=== PATIENT | female | born 1980 | race Caucasian/White ===

== ENCOUNTER 2016-12-23 17:54 | Emergency (ER) | payer OTHER, SELFPAY ==
[2016-12-23 18:07] VITALS: BP 151/74; PULSE 89; O2SAT 100
--- NOTE | 2016-12-23 18:21 | ERPHSYRPT ---
- History of Present Illness Time Seen by Provider: 12/23/16 18:19 Source: patient Exam Limitations: no limitations Patient Subjective Stated Complaint: pt reports tripping et hurting left foot 2 days ago-pt has rice with no refief-reports pain is now radiating up extremity Triage Nursing Assessment: bruising et swelling noted to extremity-pedal pulse regular Physician History: pt reports tripping et hurting left foot 2 days ago-pt has rice with no refief- reports pain is now radiating up extremity Method of Injury: fell, twisted Occurred: yesterday Quality: constant Severity of Pain-Max: mild Severity of Pain-Current: mild Lower Extremities Pain: ankle: left Modifying Factors: Improves With: nothing Associated Symptoms: No unable to bear weight Allergies/Adverse Reactions: clarithromycin [From Biaxin] Allergy (Verified 12/23/16 18:07) Home Medications: Metformin HCl 500 mg [Glucophage 500 MG] 500 mg PO BID 04/19/16 [History] Insulin Aspart [Novolog Flexpen] 100 unit SQ UD 12/23/16 [History] Insulin Detemir [Levemir] 26 unit SQ HS 12/23/16 [History] Hx Tetanus, Diphtheria Vaccination/Date Given: Yes Hx Influenza Vaccination/Date Given: Yes Hx Pneumococcal Vaccination/Date Given: Yes Immunizations Up to Date: Yes - Review of Systems Constitutional: No Symptoms Eyes: No Symptoms Ears, Nose, & Throat: No Symptoms Musculoskeletal: Joint Pain (left ankle) - Past Medical History Pertinent Past Medical History: Yes Endocrine Medical History: Diabetes Type II Musculoskeletal History: Degenerative Disk Disease, Other GI Medical History: Colitis History: No Pertinent History Psycho-Social History: Anxiety, Depression Other Medical History: PAST HX DM TYPE 2 - Past Surgical History Past Surgical History: Yes Gastrointestinal: Cholecystectomy, Other Female Surgical History: Section Other Surgical History: BARIATRIC SURGERY. SKIN REMOVAl - Social History Smoking Status: Never smoker Exposure to second hand smoke: No Drug Use: none Patient Lives Alone: No - Female History Hx Last Menstrual Period: current - Nursing Vital Signs Nursing Vital Signs: Initial Vital Signs Pulse Rate 89 Respiratory Rate 22 Blood Pressure [] 151/74 Pain Intensity 6 - Physical Exam General Appearance: no apparent distress Eyes, Ears, Nose, Throat Exam: normal ENT inspection Ankle Exam: left ankle: pain, soft tissue tenderness, swelling SpO2: 100 Oxygen Delivery: Room Air - Course Nursing assessment & vital signs reviewed: Yes - Radiology Exams Ankle X-ray Interpretation: Reviewed by me (no fracture) Ordered Tests: Active Orders 24 hr Category Date Time Status ANKLE (3 VIEWS) Stat Exams 12/23/16 18:17 Taken - Progress Progress: unchanged, pain not gone completely Counseled pt/family regarding: diagnosis, need for follow-up, rad results - Departure Time of Disposition: 18:38 Departure Disposition: Home Clinical Impression: Sprain of left ankle Qualifiers: Encounter type: initial encounter Involved ligament of ankle: deltoid ligament Qualified Code(s): S93.422A - Sprain of deltoid ligament of left ankle, initial encounter Condition: Stable Critical Care Time: No Referrals: ANTONIO LEIGH MD [Primary Care Provider] - Instructions: Ankle Sprain Additional Instructions: SPRAINS/STRAINS/CONTUSIONS 1. Rest the affected area as much as possible for the next few days. 2. Apply ice to the affected area for 20-30 minutes at a time, several times a day. 3. If you receive an elastic wrap, wear it only while awake for comfort and support. Re-wrap the elastic wrap if it feels too tight or too loose. 4. If swelling is present, elevate the affected part above the level of the heart for at least 2 to 3 days. 5. Use splints, slings, or crutches as instructed. 6. Watch for severe swelling, coldness, numbness, and discoloration of the fingers and toes. See your family physician or return to the emergency department if any of these are noted. Please follow the instructions given to you. Please take your medication as prescribed if given. If symptoms recur or get worse, come back to the emergency room if you cannot reach your primary care physician, or call your primary care physician for an appointment. Again if your symptoms get worse, come back to the emergency room. Thanks for visiting emergency room, and let us take care of you.
--- NOTE | 2016-12-24 08:35 | XRAY ---
Indication: Lateral ankle pain following injury. Comparison: None 3 views of the left ankle demonstrates minimal anterior soft tissue swelling. No other bony, articular, or soft tissue abnormalities.
== END 2016-12-23 18:46 | disposition home or self-care (01) ==
LOC: ED 17:54
DX: S93.422A Sprain of deltoid ligament of left ankle, initial encounter (principal); M25.572 Pain in left ankle and joints of left foot; X50.1XXA Overexertion from prolonged static or awkward postures, initial encounter; W01.0XXA Fall on same level from slipping, tripping and stumbling without subsequent striking against object, initial encounter
CPT/HCPCS: 73610; 99283

== ENCOUNTER 2018-03-15 21:39 | Emergency (ER) | payer OTHER ==
[2018-03-15] MEDS ORDERED: Sodium Chloride 0.9% 1000 ML 1,000 ML IV STA (22:05)
[2018-03-15] MEDS ORDERED: BENADRYL 50 MG/ML IV ONE (22:05)
[2018-03-15] MEDS ORDERED: PROTONIX 40 MG IV IV ONE ×2 (22:05→22:13)
[2018-03-15] MEDS ORDERED: MORPHINE SULFATE 4 MG INJ IV ONE (22:05)
[2018-03-15] MEDS ORDERED: Zofran 4 MG/2 ML VIAL IV ONE (22:05)
[2018-03-15] MEDS ORDERED: Pepcid 20 MG VIAL IV ONE ×2 (22:05→22:14)
[2018-03-15] MEDS ORDERED: BENADRYL 50 MG/ML ONE (22:13)
[2018-03-15] MEDS ORDERED: Zofran 4 MG/2 ML VIAL ONE (22:13)
[2018-03-15] MEDS ORDERED: Sodium Chloride 0.9% 1000 ML 1,000 ML ONE (22:14)
[2018-03-15] MEDS ORDERED: MORPHINE SULFATE 4 MG INJ ONE (22:14)
--- NOTE | 2018-03-15 22:20 | ERPHSYRPT ---
- History of Present Illness Time Seen by Provider: 03/15/18 22:17 Historian: patient, family Exam Limitations: no limitations Patient Subjective Stated Complaint: nausea, vomiting, abd pain x 4 days Triage Nursing Assessment: pt alert and oriented. pt ambulatory. mucous membranes dry. bowel sounds present x4. rebound tenderness noted RLQ. pt is dry heaving and nauseous. pt states pain in abd is an 8/10. has been having pain on and off for approximately 4 days but did not vomit until today. insulin pump located on RLQ Physician History: pt with one week hx abd pain and now vomiting and right flank pain no discharge or bleeding tender right mid abdomen Timing/Duration: day(s) Activities at Onset: none Quality: sharpness, stabbing Abdominal Pain Onset Location: RLQ, flank Pain Radiation: RLQ, flank Severity of Pain-Max: moderate Severity of Pain-Current: moderate Modifying Factors: Improves With: nothing Associated Symptoms: back, nausea, vomiting Previous symptoms: same symptoms as today Allergies/Adverse Reactions: clarithromycin [From Biaxin] Allergy (Verified 12/23/16 18:07) Home Medications: Metformin HCl 500 mg [Glucophage 500 MG] 500 mg PO BID 04/19/16 [History] Insulin Aspart [Novolog Flexpen] 100 unit SQ UD 12/23/16 [History] Insulin Detemir [Levemir] 26 unit SQ HS 12/23/16 [History] Hx Tetanus, Diphtheria Vaccination/Date Given: Yes Hx Influenza Vaccination/Date Given: Yes Hx Pneumococcal Vaccination/Date Given: Yes Immunizations Up to Date: Yes - Review of Systems Constitutional: No Fever, No Chills Eyes: No Symptoms Ears, Nose, & Throat: No Symptoms Respiratory: No Cough, No Dyspnea Cardiac: No Chest Pain, No Edema, No Syncope Abdominal/Gastrointestinal: Abdominal Pain, Nausea, Vomiting, No Diarrhea Genitourinary Symptoms: No Dysuria Musculoskeletal: No Back Pain, No Neck Pain Skin: No Rash Neurological: No Dizziness, No Focal Weakness, No Sensory Changes Psychological: No Symptoms Endocrine: No Symptoms All Other Systems: Reviewed and Negative - Past Medical History Pertinent Past Medical History: Yes Cardiac History: No Pertinent History Respiratory History: No Pertinent History Endocrine Medical History: Diabetes Type II Musculoskeletal History: Degenerative Disk Disease, Other GI Medical History: Colitis History: No Pertinent History Psycho-Social History: Anxiety, Depression Other Medical History: PAST HX DM TYPE 2 - Past Surgical History Past Surgical History: Yes Gastrointestinal: Cholecystectomy, Other Female Surgical History: Section Other Surgical History: BARIATRIC SURGERY. SKIN REMOVAl - Social History Smoking Status: Never smoker Exposure to second hand smoke: No Drug Use: none Patient Lives Alone: No - Female History Hx Last Menstrual Period: 03/09/18 Hx Now: No (HCG pending) - Nursing Vital Signs Nursing Vital Signs: Initial Vital Signs Pulse Rate 79 03/15/18 21:39 Respiratory Rate 16 03/15/18 21:39 Blood Pressure 143/86 03/15/18 21:39 O2 Sat by Pulse Oximetry 99 03/15/18 21:39 Pain Scale Pain Intensity 6 - Physical Exam General Appearance: no apparent distress, alert Eye Exam: PERRL/EOMI, eyes nml inspection Ears, Nose, Throat Exam: normal ENT inspection, pharynx normal, moist mucous membranes Neck Exam: normal inspection, non-tender, supple, full range of motion Respiratory Exam: normal breath sounds, lungs clear, No respiratory distress Cardiovascular Exam: regular rate/rhythm, normal heart sounds Gastrointestinal/Abdomen Exam: soft, tenderness, No mass Pelvic Exam: deferred Rectal Exam: deferred Back Exam: normal inspection, normal range of motion, No CVA tenderness, No vertebral tenderness Extremity Exam: normal inspection, normal range of motion, pelvis stable Neurologic Exam: alert, oriented x 3, cooperative, normal mood/affect, nml cerebellar function, sensation nml, No motor deficits Skin Exam: normal color, warm, dry SpO2: 99 Oxygen Delivery: Room Air - Course Nursing assessment & vital signs reviewed: Yes EKG Interpreted by Me: Sinus Rhythm, Non-specific ST Changes - CT Exams Abdomen CT Interpretation: Tele-radiologist Report, Normal Appendix, Other (ovarian follicles on right and some loops of bowel) Ordered Tests: Active Orders 24 hr Category Date Time Status Clean Catch Urine Specimen STAT Care 03/15/18 22:05 Active EKG-ER Only STAT Care 03/15/18 22:01 Active IV Insertion STAT Care 03/15/18 22:01 Active NPO (ED) STAT Care 03/15/18 22:05 Active ABDOMEN AND PELVIS W/0 CONTRAS [CT] Stat Exams 03/15/18 22:06 Taken PELVIS TRANS VAGINAL [US] Stat Exams 03/16/18 00:45 Taken AMYLASE Stat Lab 03/15/18 22:55 Completed CBC W DIFF Stat Lab 03/15/18 22:55 Completed CMP Stat Lab 03/15/18 22:55 Completed CULTURE,URINE Stat Lab 03/15/18 22:30 Received HCG QUALITATIVE,SERUM Stat Lab 03/15/18 22:55 Completed LIPASE Stat Lab 03/15/18 22:55 Completed Lactic Acid Stat Lab 03/15/18 22:55 Completed TROPONIN Q3H Lab 03/15/18 22:55 Completed TROPONIN Q3H Lab 03/16/18 01:15 Completed TROPONIN Q3H Lab 03/16/18 04:15 Ordered TROPONIN Q3H Lab 03/16/18 07:15 Ordered TROPONIN Q3H Lab 03/16/18 10:15 Ordered UA W/ MICROSCOPIC Stat Lab 03/15/18 22:30 Completed Medication Summary Discontinued Medications Generic Name Dose Route Start Last Admin Trade Name Freq PRN Reason Stop Dose Admin Diphenhydramine HCl 25 mg 03/15/18 22:05 03/15/18 22:19 Benadryl 50 Mg/Ml IV 03/15/18 22:06 25 mg STAT ONE Administration Diphenhydramine HCl Confirm 03/15/18 22:13 Benadryl 50 Mg/Ml Administered 03/15/18 22:14 Dose 50 mg .ROUTE .STK-MED ONE Famotidine 20 mg 03/15/18 22:05 03/15/18 22:19 Pepcid 20 Mg Vial IV 03/15/18 22:06 20 mg STAT ONE Administration Famotidine Confirm 03/15/18 22:14 Pepcid 20 Mg Vial Administered 03/15/18 22:15 Dose 20 mg IV .STK-MED ONE Sodium Chloride 1,000 mls @ 999 mls/hr 03/15/18 22:05 03/15/18 22:20 Sodium Chloride 0.9% 1000 Ml IV 03/15/18 23:05 999 mls/hr .Q1H1M STA Administration Sodium Chloride Confirm 03/15/18 22:14 Sodium Chloride 0.9% 1000 Ml Administered 03/15/18 22:15 Dose 1,000 mls @ ud .ROUTE .STK-MED ONE Morphine Sulfate 4 mg 03/15/18 22:05 03/15/18 22:19 Morphine Sulfate 4 Mg Inj IV 03/15/18 22:06 4 mg STAT ONE Administration Morphine Sulfate Confirm 03/15/18 22:14 Morphine Sulfate 4 Mg Inj Administered 03/15/18 22:15 Dose 4 mg .ROUTE .STK-MED ONE Ondansetron HCl 4 mg 03/15/18 22:05 03/15/18 22:20 Zofran 4 Mg/2 Ml Vial IV 03/15/18 22:06 4 mg STAT ONE Administration Ondansetron HCl Confirm 03/15/18 22:13 Zofran 4 Mg/2 Ml Vial Administered 03/15/18 22:14 Dose 4 mg .ROUTE .STK-MED ONE Pantoprazole Sodium 40 mg 03/15/18 22:05 03/15/18 22:19 Protonix 40 Mg Iv IV 03/15/18 22:06 40 mg STAT ONE Administration Pantoprazole Sodium Confirm 03/15/18 22:13 Protonix 40 Mg Iv Administered 03/15/18 22:14 Dose 40 mg IV .STK-MED ONE Lab/Rad Data: Laboratory Result Diagrams 03/15/18 22:55 03/15/18 22:55 Laboratory Results 03/16/18 03/15/18 03/15/18 Range/Units 01:15 22:55 22:55 WBC (4.0-10.5) K/mm3 RBC (4.1-5.4) M/mm3 Hgb (12.0-16.0) gm/dl Hct (35-47) % MCV (78-100) fl MCH (26-32) pg MCHC (32-36) g/dl RDW (11.5-14.0) % Plt Count (150-450) K/mm3 MPV (6-9.5) fl Gran % (36.0-66.0) % Eos # (Auto) (0-0.5) Absolute Lymphs (auto) (1.0-4.6) Absolute Monos (auto) (0.0-1.3) Lymphocytes % (24.0-44.0) % Monocytes % (0.0-12.0) % Eosinophils % (0.00-5.0) % Basophils % (0.0-0.4) % Absolute Granulocytes (1.4-6.9) Basophils # (0-0.4) Sodium (137-145) mmol/L Potassium (3.5-5.1) mmol/L Chloride (98-107) mmol/L Carbon Dioxide (22-30) mmol/L Anion Gap (5-15) MEQ/L BUN (7-17) mg/dL Creatinine (0.52-1.04) mg/dL Estimated GFR ML/MIN Glucose (74-106) mg/dL Lactic Acid (0.4-2.0) Calcium (8.4-10.2) mg/dL Total Bilirubin (0.2-1.3) mg/dL AST (14-36) U/L ALT (0-35) U/L Alkaline Phosphatase (38-126) U/L Troponin I < 0.012 < 0.012 (0.000-0.034) ng/mL Serum Total Protein (6.3-8.2) g/dL Albumin (3.5-5.0) g/dL Amylase (30-110) U/L Lipase (23-300) U/L Serum , Qual NEGATIVE (Negative) Ur Collection Type Urine Color (YELLOW) Urine Appearance (CLEAR) Urine pH (5-6) Ur Specific Marlin (1.005-1.025) Urine Protein (Negative) Urine Ketones (NEGATIVE) Urine Blood (0-5) Fam/ul Urine Nitrite (NEGATIVE) Urine Bilirubin (NEGATIVE) Urine Urobilinogen (0-1) mg/dL Ur Leukocyte Esterase (NEGATIVE) Urine Microscopic RBC (0-2) /HPF Urine Microscopic WBC (0-5) /HPF Ur Epithelial Cells (FEW) /HPF Urine Bacteria (NEGATIVE) /HPF Urine Culture Reflexed (NO) Urine Glucose (NEGATIVE) mg/dL Specimen Received 03/15/18 03/15/18 03/15/18 Range/Units 22:55 22:55 22:55 WBC 6.7 (4.0-10.5) K/mm3 RBC 3.61 L (4.1-5.4) M/mm3 Hgb 8.8 L (12.0-16.0) gm/dl Hct 28.2 L (35-47) % MCV 78.1 (78-100) fl MCH 24.3 L (26-32) pg MCHC 31.2 L (32-36) g/dl RDW 14.4 H (11.5-14.0) % Plt Count 265 (150-450) K/mm3 MPV 10.5 H (6-9.5) fl Gran % 51.3 (36.0-66.0) % Eos # (Auto) 0.14 (0-0.5) Absolute Lymphs (auto) 2.66 (1.0-4.6) Absolute Monos (auto) 0.43 (0.0-1.3) Lymphocytes % 39.6 (24.0-44.0) % Monocytes % 6.4 (0.0-12.0) % Eosinophils % 2.1 (0.00-5.0) % Basophils % 0.6 (0.0-0.4) % Absolute Granulocytes 3.44 (1.4-6.9) Basophils # 0.04 (0-0.4) Sodium 138 (137-145) mmol/L Potassium 4.0 (3.5-5.1) mmol/L Chloride 105 (98-107) mmol/L Carbon Dioxide 24 (22-30) mmol/L Anion Gap 13.4 (5-15) MEQ/L BUN 9 (7-17) mg/dL Creatinine 0.65 (0.52-1.04) mg/dL Estimated GFR > 60.0 ML/MIN Glucose 95 (74-106) mg/dL Lactic Acid 1.1 (0.4-2.0) Calcium 8.5 (8.4-10.2) mg/dL Total Bilirubin < 0.10 L (0.2-1.3) mg/dL AST 12 L (14-36) U/L ALT 10 (0-35) U/L Alkaline Phosphatase 60 (38-126) U/L Troponin I (0.000-0.034) ng/mL Serum Total Protein 6.1 L (6.3-8.2) g/dL Albumin 3.4 L (3.5-5.0) g/dL Amylase 66 (30-110) U/L Lipase 169 (23-300) U/L Serum , Qual (Negative) Ur Collection Type Urine Color (YELLOW) Urine Appearance (CLEAR) Urine pH (5-6) Ur Specific Marlin (1.005-1.025) Urine Protein (Negative) Urine Ketones (NEGATIVE) Urine Blood (0-5) Fam/ul Urine Nitrite (NEGATIVE) Urine Bilirubin (NEGATIVE) Urine Urobilinogen (0-1) mg/dL Ur Leukocyte Esterase (NEGATIVE) Urine Microscopic RBC (0-2) /HPF Urine Microscopic WBC (0-5) /HPF Ur Epithelial Cells (FEW) /HPF Urine Bacteria (NEGATIVE) /HPF Urine Culture Reflexed (NO) Urine Glucose (NEGATIVE) mg/dL Specimen Received 03/15/18 Range/Units 22:30 WBC (4.0-10.5) K/mm3 RBC (4.1-5.4) M/mm3 Hgb (12.0-16.0) gm/dl Hct (35-47) % MCV (78-100) fl MCH (26-32) pg MCHC (32-36) g/dl RDW (11.5-14.0) % Plt Count (150-450) K/mm3 MPV (6-9.5) fl Gran % (36.0-66.0) % Eos # (Auto) (0-0.5) Absolute Lymphs (auto) (1.0-4.6) Absolute Monos (auto) (0.0-1.3) Lymphocytes % (24.0-44.0) % Monocytes % (0.0-12.0) % Eosinophils % (0.00-5.0) % Basophils % (0.0-0.4) % Absolute Granulocytes (1.4-6.9) Basophils # (0-0.4) Sodium (137-145) mmol/L Potassium (3.5-5.1) mmol/L Chloride (98-107) mmol/L Carbon Dioxide (22-30) mmol/L Anion Gap (5-15) MEQ/L BUN (7-17) mg/dL Creatinine (0.52-1.04) mg/dL Estimated GFR ML/MIN Glucose (74-106) mg/dL Lactic Acid (0.4-2.0) Calcium (8.4-10.2) mg/dL Total Bilirubin (0.2-1.3) mg/dL AST (14-36) U/L ALT (0-35) U/L Alkaline Phosphatase (38-126) U/L Troponin I (0.000-0.034) ng/mL Serum Total Protein (6.3-8.2) g/dL Albumin (3.5-5.0) g/dL Amylase (30-110) U/L Lipase (23-300) U/L Serum , Qual (Negative) Ur Collection Type CLEAN CATCH Urine Color YELLOW (YELLOW) Urine Appearance CLEAR (CLEAR) Urine pH 5.0 (5-6) Ur Specific Marlin 1.010 (1.005-1.025) Urine Protein NEGATIVE (Negative) Urine Ketones NEGATIVE (NEGATIVE) Urine Blood 50 (0-5) Fam/ul Urine Nitrite NEGATIVE (NEGATIVE) Urine Bilirubin NEGATIVE (NEGATIVE) Urine Urobilinogen NORMAL (0-1) mg/dL Ur Leukocyte Esterase 1+ (NEGATIVE) Urine Microscopic RBC 2-5 (0-2) /HPF Urine Microscopic WBC 2-5 (0-5) /HPF Ur Epithelial Cells MODERATE (FEW) /HPF Urine Bacteria FEW (NEGATIVE) /HPF Urine Culture Reflexed YES (NO) Urine Glucose NEGATIVE (NEGATIVE) mg/dL Specimen Received 03/15/180 - Progress Progress: improved, re-examined Progress Note: 03/16/18 00:43 discussed results with pt and discussed additional possible pathology such as torsion and she wishes this ruled out but will require more time to accomplish to call in US. 03/16/18 02:24 pt states that her hemoglobin is low chronically and she is being treated for this and has been lower in past - so not acute. discussed with pt that we have not found the cause of her pain and that undetected pathology could still be evolving and she prefers DC to f/u out pt rather than admission for obs or further [place] at this time here. Counseled pt/family regarding: lab results, diagnosis, need for follow-up, rad results - Departure Time of Disposition: 02:27 Departure Disposition: Home Clinical Impression: Abdominal pain of unknown etiology Condition: Good Critical Care Time: No Referrals: DAYNA VALDES MD [Primary Care Provider] - Instructions: Acute Abdomen (Belly Pain), Adult (DC) Additional Instructions: we have not yet found a cause for the pain and therefore it is important to followup with your Dr for further evaluation and return meantime if any concerns. Prescriptions: Ondansetron ODT 4 MG [Zofran Odt 4 mg] 4 mg PO Q6H PRN PRN #10 tab.rapdis PRN Reason: Nausea/Vomiting
[2018-03-15 23:06] LABS: BASOPHIL % 0.6 % (0.0-0.4); Basophil (Absolute #) 0.04 (0-0.4); Eosinophil % 2.1 % (0.00-5.0); Eosinophil (Absolute #) 0.14 (0-0.5); Granulocyte Absolute (ANC) 3.44 (1.4-6.9); Granulocytes % 51.3 % (36.0-66.0); Hematocrit 28.2 % (35-47); Hemoglobin 8.8 gm/dl (12.0-16.0); Lymphocyte (Absolute #) 2.66 (1.0-4.6); Lymphocytes % 39.6 % (24.0-44.0); Mean Cell Volume 78.1 fl (78-100); Mean Corpuscular Hgb Concent. 31.2 g/dl (32-36); Mean Platelet Volume 10.5 fl (6-9.5); Monocyte (Absolute #) 0.43 (0.0-1.3); Monocytes % 6.4 % (0.0-12.0); Platelet Count 265 K/mm3 (150-450); Red Blood Count 3.61 M/mm3 (4.1-5.4); Red Cell Distribution Width 14.4 % (11.5-14.0); White Blood Count 6.7 K/mm3 (4.0-10.5)
[2018-03-15 23:24] LABS: ALBUMIN 3.4 g/dL (3.5-5.0); ALKALINE PHOSPHATASE 60 U/L (38-126); AMYLASE 66 U/L (30-110); ANION GAP 13.4 MEQ/L (5-15); BILIRUBIN,TOTAL < 0.10 mg/dL (0.2-1.3); BLOOD UREA NITROGEN 9 mg/dL (7-17); CHLORIDE 105 mmol/L (98-107); Calcium 8.5 mg/dL (8.4-10.2); Carbon Dioxide 24 mmol/L (22-30); Creatinine 1 0.65 mg/dL (0.52-1.04); Glucose 95 mg/dL (74-106); LIPASE 169 U/L (23-300); SGOT/AST 12 U/L (14-36); SGPT/ALT 10 U/L (0-35); SODIUM 138 mmol/L (137-145); Total Protein 6.1 g/dL (6.3-8.2)
[2018-03-15 23:27] LABS: Appearance CLEAR (CLEAR); Bilirubin NEGATIVE (NEGATIVE); Blood 50 Ery/ul (0-5); Glucose NEGATIVE (NEGATIVE); Ketones NEGATIVE (NEGATIVE); Leukocyte Esterase 1+ (NEGATIVE); Nitrite NEGATIVE (NEGATIVE); Protein,Urine Dip NEGATIVE (Negative); Urobilinogen NORMAL mg/dL (0-1)
[2018-03-15 23:28] LABS: Bacteria FEW /HPF (NEGATIVE); Epithelial Cells MODERATE /HPF (FEW)
[2018-03-15 23:29] LABS: Mean Corpuscular Hemoglobin 24.3 pg (26-32)
[2018-03-16 00:28] VITALS: BP 93/64; PULSE 58
[2018-03-16 00:45] VITALS: O2SAT 99
--- NOTE | 2018-03-16 08:47 | XRAY ---
Indication: Right lower quadrant pain, nausea, and vomiting. Multiple contiguous axial images obtained through the abdomen and pelvis without contrast as ordered. Comparison: December 30, 2015. Lung bases are essentially clear. Stable right infrahilar calcified nodes. Heart is not enlarged. Again previous gastric bypass surgery. Noncontrasted stomach and bowel loops appear nonobstructed. Normal appendix. Again previous cholecystectomy. No free fluid/air. Spleen remains enlarged again measuring 15 cm. Remaining liver, pancreas, spleen, adrenal glands, kidneys, ureters, bladder, uterus, and aorta appear unremarkable for noncontrast exam. Osseous structures intact. Impression: 1. Stable splenomegaly and gastric bypass surgery. 2. No new/acute intra-abdominal/pelvic abnormalities on this noncontrast exam. Comment: Preliminary interpretation was made by [facility]. No critical discrepancy. CTDI 23.68
--- NOTE | 2018-03-16 08:49 | XRAY ---
Indication: Right lower quadrant pain. Two-dimensional transvaginal pelvic ultrasound was performed. Comparison: January 06, 2016. Uterus is again anteverted today measuring 8.4 x 4.0 x 4.8 cm. Myometrium homogeneous. Endometrial stripe measures 4.7 mm. No endometrial cavity mass or fluid collection. Right ovary measures 3.2 x 1.9 x 2.6 cm and the left measures 3.1 x 1.6 x 2.9 cm. Normal follicular cysts and perfusion bilaterally. No suspicious adnexal mass or free fluid. Impression: Stable negative transvaginal pelvic sonogram. Comment: Preliminary report was given.
== END 2018-03-16 02:40 | disposition home or self-care (01) ==
LOC: ED 21:39
DX: R10.31 Right lower quadrant pain (principal); R11.2 Nausea with vomiting, unspecified; R10.9 Unspecified abdominal pain; E11.9 Type 2 diabetes mellitus without complications; Z79.4 Long term (current) use of insulin; Z79.84 Long term (current) use of oral hypoglycemic drugs; Z96.41 Presence of insulin pump (external) (internal)
CPT/HCPCS: 36000; 36415; 74176; 76830; 80053; 81000; 82150; 83605; 83690; 84484; 84703; 85025; 87086; 93005; 96360; 96361; 96374; 96375; 99284; J1200; J2270; J2405

== ENCOUNTER 2025-10-09 19:09 | Emergency (ER) | payer BC ==
[2025-10-09 19:24] VITALS: TEMP 98
[2025-10-09 19:38] LABS: BASOPHIL % 0.5 % (0.1-1.2); Basophil (Absolute #) 0.04 x10^3/uL (0.01-0.08); Eosinophil (Absolute #) 0.08 x10^3/uL (0.04-0.36); Hematocrit 38.3 % (34.1-44.9); Hemoglobin 12.5 g/dL (11.2-15.7); IMMATURE GRAN # 0.02 x10^3u/L (0.001-0.031); IMMATURE GRAN % 0.3 % (0.001-0.429); Lymphocyte (Absolute #) 2.64 x10^3/uL (1.18-3.74); Mean Corpuscular Hemoglobin 28.6 pg (25.6-32.2); Mean Corpuscular Hgb Concent. 32.6 g/dL (32.2-35.5); Monocyte (Absolute #) 0.46 x10^3/uL (0.24-0.86); NUCLEATED RBC # 0.00 x10^3u/L (0.00-0.012); NUCLEATED RBC % 0.0 % (0.00-0.2); Platelet Count 220 x10^3/uL (182-369); Red Blood Count 4.37 x10^6/uL (3.93-5.22); White Blood Count 7.6 x10^3/uL (3.98-10.04)
[2025-10-09 19:47] LABS: Calcium 9.0 mg/dL (8.4-10.2); Carbon Dioxide 27 mmol/L (22-30); Creatinine 1 0.69 mg/dL (0.52-1.04); EST GLOMERULAR FILTRATION RATE 110.4 ML/MIN; Glucose 93 mg/dL (74-106); Potassium 3.9 mmol/L (3.5-5.1); SGOT/AST 28 U/L (14-36); SGPT/ALT 19 U/L (0-35); Total Protein 7.0 g/dL (6.3-8.2)
[2025-10-09] MEDS ORDERED: TORAdol 30 mg Injection ONE (19:48)
--- NOTE | 2025-10-09 19:49 | ERPHSYRPT ---
- History of Present Illness Time Seen by Provider: 10/09/25 19:24 Physician History: Throughout female who presents with right sided chest discomfort. She reports that she was asymptomatic until an hour ago when she was getting into a vehicle and twisted. She states that she developed sharp pain across the right outside of her chest. She states is worse with movement and deep breathing along with palpation. She denies any cough or difficulty breathing. She reports the pain increases with deep breathing. She denies abdominal pain nausea vomiting fever or chills. She taken no meds prior to arrival. Allergies/Adverse Reactions: clarithromycin [From Biaxin] Allergy (Verified 10/09/25 19:17) Home Medications: Pravastatin Sodium 10 mg PO HS 10/09/25 [History] Progesterone, Micronized [Progesterone] 100 mg PO HS 10/09/25 [History] estradioL [Estradiol] 2 mg PO HS 10/09/25 [History] Hx Tetanus, Diphtheria Vaccination/Date Given: Yes Hx Influenza Vaccination/Date Given: Yes Hx Pneumococcal Vaccination/Date Given: Yes - Review of Systems Constitutional: No Fever, No Chills Eyes: No Symptoms Ears, Nose, & Throat: No Symptoms Respiratory: No Cough, No Dyspnea Cardiac: Chest Pain, No Edema, No Syncope Abdominal/Gastrointestinal: No Abdominal Pain, No Nausea, No Vomiting, No Diarrhea Genitourinary Symptoms: No Dysuria Musculoskeletal: No Back Pain, No Neck Pain Skin: No Rash Neurological: No Dizziness, No Focal Weakness, No Sensory Changes Psychological: No Symptoms Endocrine: No Symptoms All Other Systems: Reviewed and Negative - Past Medical History Pertinent Past Medical History: Yes Cardiac History: No Pertinent History Respiratory History: No Pertinent History Endocrine Medical History: Diabetes Type II Musculoskeletal History: Degenerative Disk Disease, Other GI Medical History: Colitis History: No Pertinent History Psycho-Social History: Anxiety, Depression Other Medical History: PAST HX DM TYPE 2 - Past Surgical History Past Surgical History: Yes Gastrointestinal: Cholecystectomy, Other Female Surgical History: Section Other Surgical History: BARIATRIC SURGERY. SKIN REMOVAl - Female History Hx Now: No - Social History Smoking Status: Never smoker Exposure to second hand smoke: No Drug Use: none Patient Lives Alone: No - Nursing Vital Signs Nursing Vital Signs: Initial Vital Signs Pulse Rate 84 10/09/25 19:18 Respiratory Rate 15 10/09/25 19:18 Blood Pressure 128/71 10/09/25 19:18 O2 Sat by Pulse Oximetry 98 10/09/25 19:18 Pain Scale Pain Intensity 5 - Physical Exam General Appearance: no apparent distress, alert Eye Exam: PERRL/EOMI, eyes nml inspection Ears, Nose, Throat Exam: normal ENT inspection, TMs normal, pharynx normal, moist mucous membranes Neck Exam: normal inspection, non-tender, supple, full range of motion Respiratory Exam: normal breath sounds, lungs clear, No respiratory distress Cardiovascular Exam: regular rate/rhythm, normal heart sounds, normal peripheral pulses Gastrointestinal/Abdomen Exam: soft, normal bowel sounds, No tenderness, No mass Back Exam: normal inspection, normal range of motion, No CVA tenderness, No vertebral tenderness Extremity Exam: normal inspection, normal range of motion, pelvis stable Neurologic Exam: alert, oriented x 3, cooperative, normal mood/affect, nml cerebellar function, nml station & gait, sensation nml, No motor deficits Skin Exam: normal color, warm, dry, No rash Lymphatic Exam: No adenopathy SpO2 Interpretation: normal SpO2: 97 Ordered Tests: Active Orders 24 hr Category Date Time Status EKG-ER Only STAT Care 10/09/25 19:32 Active CHEST 2 VIEWS (PA AND LAT) Stat Exams 10/09/25 19:33 Completed CBC W DIFF Stat Lab 10/09/25 19:36 Completed CMP Stat Lab 10/09/25 19:36 Completed D-DIMER QUANTITATIVE Stat Lab 10/09/25 19:36 Completed LIPASE Stat Lab 10/09/25 19:36 Completed TROPONIN Q4H Lab 10/09/25 19:36 Completed TROPONIN Q4H Lab 10/09/25 23:45 Ordered TROPONIN Q4H Lab 10/10/25 03:45 Ordered Medication Summary Discontinued Medications Generic Name Dose Route Start Last Admin Trade Name Freq PRN Reason Stop Dose Admin Ketorolac Tromethamine 15 mg 10/09/25 19:34 10/09/25 19:52 Ketorolac Tromethamine 30 Mg/Ml Inj IV 10/09/25 19:35 15 mg STAT ONE Administration Ketorolac Tromethamine Confirm 10/09/25 19:48 Ketorolac Tromethamine 30 Mg/Ml Inj Administered 10/09/25 19:49 Dose 30 mg .ROUTE .[facility] ONE Lab/Rad Data: Laboratory Result Diagrams 10/09/25 19:36 10/09/25 19:36 Laboratory Results 10/09/25 10/09/25 10/09/25 Range/Units 19:36 19:36 19:36 WBC (3.98-10.04) x10^3/uL RBC (3.93-5.22) x10^6/uL Hgb (11.2-15.7) g/dL Hct (34.1-44.9) % MCV (79.4-94.8) fL MCH (25.6-32.2) pg MCHC (32.2-35.5) g/dL RDW (11.7-14.4) % Plt Count (182-369) x10^3/uL MPV (9.4-12.3) fL Gran % (34.0-71.1) % Immature Gran % (Auto) (0.001-0.429) % Nucleat RBC Rel Count (0.00-0.2) % Eos # (Auto) (0.04-0.36) x10^3/uL Immature Gran # (Auto) (0.001-0.031) x10^3u/L Absolute Lymphs (auto) (1.18-3.74) x10^3/uL Absolute Monos (auto) (0.24-0.86) x10^3/uL Absolute Nucleated RBC (0.00-0.012) x10^3u/L Lymphocytes % (19.3-51.7) % Monocytes % (4.7-12.5) % Eosinophils % (0.7-5.8) % Basophils % (0.1-1.2) % Absolute Granulocytes (1.56-6.13) x10^3/uL Basophils # (0.01-0.08) x10^3/uL D-Dimer 0.46 (0.0-0.50) mg/L Sodium 133 L (135-145) mmol/L Potassium 3.9 (3.5-5.1) mmol/L Chloride 101 (98-107) mmol/L Carbon Dioxide 27 (22-30) mmol/L Anion Gap 9.7 (5-15) MEQ/L BUN 17 (7-17) mg/dL Creatinine 0.69 (0.52-1.04) mg/dL Estimated GFR 110.4 ML/MIN Glucose 93 (74-106) mg/dL Calcium 9.0 (8.4-10.2) mg/dL Total Bilirubin < 0.10 L (0.2-1.3) mg/dL AST 28 (14-36) U/L ALT 19 (0-35) U/L Alkaline Phosphatase 58 (38-126) U/L Troponin I < 0.012 (0.000-0.033) ng/mL Serum Total Protein 7.0 (6.3-8.2) g/dL Albumin 4.1 (3.5-5.0) g/dL Lipase 427 H (23-300) U/L 10/09/25 Range/Units 19:36 WBC 7.6 (3.98-10.04) x10^3/uL RBC 4.37 (3.93-5.22) x10^6/uL Hgb 12.5 (11.2-15.7) g/dL Hct 38.3 (34.1-44.9) % MCV 87.6 (79.4-94.8) fL MCH 28.6 (25.6-32.2) pg MCHC 32.6 (32.2-35.5) g/dL RDW 12.2 (11.7-14.4) % Plt Count 220 (182-369) x10^3/uL MPV 10.1 (9.4-12.3) fL Gran % 57.6 (34.0-71.1) % Immature Gran % (Auto) 0.3 (0.001-0.429) % Nucleat RBC Rel Count 0.0 (0.00-0.2) % Eos # (Auto) 0.08 (0.04-0.36) x10^3/uL Immature Gran # (Auto) 0.02 (0.001-0.031) x10^3u/L Absolute Lymphs (auto) 2.64 (1.18-3.74) x10^3/uL Absolute Monos (auto) 0.46 (0.24-0.86) x10^3/uL Absolute Nucleated RBC 0.00 (0.00-0.012) x10^3u/L Lymphocytes % 34.6 (19.3-51.7) % Monocytes % 6.0 (4.7-12.5) % Eosinophils % 1.0 (0.7-5.8) % Basophils % 0.5 (0.1-1.2) % Absolute Granulocytes 4.39 (1.56-6.13) x10^3/uL Basophils # 0.04 (0.01-0.08) x10^3/uL D-Dimer (0.0-0.50) mg/L Sodium (135-145) mmol/L Potassium (3.5-5.1) mmol/L Chloride (98-107) mmol/L Carbon Dioxide (22-30) mmol/L Anion Gap (5-15) MEQ/L BUN (7-17) mg/dL Creatinine (0.52-1.04) mg/dL Estimated GFR ML/MIN Glucose (74-106) mg/dL Calcium (8.4-10.2) mg/dL Total Bilirubin (0.2-1.3) mg/dL AST (14-36) U/L ALT (0-35) U/L Alkaline Phosphatase (38-126) U/L Troponin I (0.000-0.033) ng/mL Serum Total Protein (6.3-8.2) g/dL Albumin (3.5-5.0) g/dL Lipase (23-300) U/L - Progress Progress: improved Progress Note: 10/09/25 19:50 5-year-old female presents with right sided chest pain after twisting getting into vehicle. She has right chest wall tenderness otherwise unremarkable exam. She was reviewed which was unremarkable and sinus rhythm rate 76 Labs ordered. 10/09/25 20:08 cxr nad 10/09/25 21:00 Reviewed the findings. Chest x-ray was unremarkable. Lab work was unremarkable other than a mildly elevated lipase. I reexamined the patient. She is not having any epigastric pain. After the pain meds she is improved and only reports pain on the right lateral rib cage focally. I discussed the findings possible pancreas enzyme elevation. She denies any abdominal pain. She will return for any abdominal symptoms. Was pretreated as chest wall strain. - Departure Departure Disposition: Home Clinical Impression: Chest wall pain Condition: Stable Critical Care Time: No Referrals: BILLY QUINTANILLA MD [Primary Care Provider, UNKNOWN] - Follow up/PCP as directed Additional Instructions: take pain meds as written. can use ibuprofen for discomfort. return for worsening pain, difficulty breathing, abdominal pain or concerns Prescriptions: Hydrocodone/Acetaminophen [Hydrocodon-Acetaminophen 5-325] 1 each PO Q4-6HPRN PRN #16 tablet MDD 8 PRN Reason: Pain
[2025-10-09] MEDS: TORAdol 30 mg Injection IV ONE (19:52)
[2025-10-09 20:15] VITALS: RESP 17
--- NOTE | 2025-10-09 20:40 | XRAY ---
Indication: Right chest pain. Comparison: None PA/lateral chest hyperinflated and clear. Heart and mediastinal structures within normal limits. Bony thorax intact with minimal dextroscoliosis. Impression: Nonacute hyperinflated chest.
[2025-10-09 21:02] VITALS: BP 116/76; PULSE 81
[2025-10-09 21:05] VITALS: O2SAT 97
== END 2025-10-09 21:14 | disposition home or self-care (01) ==
LOC: ED 19:09
DX: R07.89 Other chest pain (principal); E11.9 Type 2 diabetes mellitus without complications; Z79.891 Long term (current) use of opiate analgesic; Z79.899 Other long term (current) drug therapy